=== PATIENT | female | born 1980 | race Caucasian/White ===

== ENCOUNTER 2020-11-03 23:30 | Emergency (ER) | payer OTHER ==
[~2020-11-03] VITALS: Ht 162.6 cm; Wt 90.7 kg
[2020-11-04] MEDS ORDERED: AUGMENTIN 875-1 EACH PO (01:11)
[2020-11-04 01:16] VITALS: BP 150/90
[2020-11-07] MEDS ORDERED: IMOVAX RABIE2.5 UNIT IM (08:55)
== END 2020-11-04 01:17 | disposition home or self-care (01) ==
LOC: M.ERS 23:30
DX: S51.852A Open bite of left forearm, initial encounter (principal); S61.250A Open bite of right index finger without damage to nail, initial encounter; Z90.711 Acquired absence of uterus with remaining cervical stump; W54.0XXA Bitten by dog, initial encounter; Y93.89 Activity, other specified; Y92.89 Other specified places as the place of occurrence of the external cause; Y99.8 Other external cause status

== ENCOUNTER 2020-11-13 14:31 | Emergency (ER) | payer OTHER ==
[~2020-11-13] VITALS: Ht 162.6 cm; Wt 90.7 kg
[~2020-11-13 14:31] MED LIST: AUGMENTIN 875-1 EACH PO; IMOVAX RABIE2.5 UNIT IM
[2020-11-13 15:12] LABS: URINE BILIRUBIN NEGATIVE (Negative); URINE BLOOD NEGATIVE (Negative); URINE CLARITY CLEAR; URINE COLOR YELLOW; URINE GLUCOSE-RANDOM NEGATIVE (Negative); URINE KETONES NEGATIVE (Negative); URINE LEUKOCYTES-REFLEX NEGATIVE (Negative); URINE NITRITE-REFLEX NEGATIVE (Negative); URINE PROTEIN NEGATIVE (Negative)
[2020-11-13 15:39] LABS: ABSOLUTE BASOPHILS 0.1 thou/uL (0.0-0.2); ABSOLUTE EOSINOPHILS 0.1 thou/uL (0.0-0.7); ABSOLUTE LYMPHOCYTES 1.2 thou/uL (0.8-5.3); ABSOLUTE MONOCYTES 0.4 thou/uL (0.0-1.2); ABSOLUTE NEUTROPHILS 4.3 thou/uL (1.6-8.1); BASOPHILS 1.1 %; EOSINOPHILS 1.6 %; HEMATOCRIT 45.2 % (37.0-47.0); LYMPHOCYTES 19.5 %; MCH 31.7 pg (26.0-34.0); MCHC 33.1 g/dL (28.0-37.0); MCV 95.6 fL (80.0-100.0); MONOCYTES 6.7 %; MPV 8.7 fl. (7.2-11.1); NUCLEATED RBCS 0 /100WBC; PLATELET COUNT* 280 thou/uL (150-400); POLYS 71.1 %; RBC 4.73 mil/uL (4.20-5.00); RDW-CV 13.6 % (10.5-14.5)
[2020-11-13 15:55] LABS: CALCIUM 8.9 mg/dL (8.5-10.1); CREATININE 0.7 mg/dL (0.6-1.3); POTASSIUM 4.1 mmol/L (3.5-5.1)
[2020-11-13 16:00] LABS: ALBUMIN 3.6 g/dL (3.4-5.0); TOTAL BILIRUBIN 0.5 mg/dL (<0.1-1.0); TOTAL PROTEIN 7.8 g/dL (6.4-8.2)
[2020-11-13] MEDS ORDERED: LISINOPRIL10 MG PO (17:22)
[2020-11-13 18:04] VITALS: BP 129/81
--- NOTE | 2020-11-14 10:14 | EKG ---
[place] [address] ELECTROCARDIOGRAM REPORT Name: ERNIE GUAJARDO Room: [facility]#: [id number] Admission: 11/13/20 Attend Phys: Discharge: 11/13/20 Date of : 80 Date of Service: 11/13/20 1459 Report #: [id number] THIS REPORT FOR: //name// [facility] ED Test Date: 2020-11-13 Test Time: 14:59:42 Pat Name: ERNIE GUAJARDO Department: Room: Gender: [employer]: ELE : 1980 Requested By: Melida Dudley Order Number: [id number] MD: Chele Rutledge Measurements Intervals Oil Trough Rate: 73 P: 36 WV: 154 QRS: 45 QRSD: 103 T: 29 QT: 391 QTc: 431 Interpretive Statements Sinus rhythm Baseline wander in lead(s) V3 No previous ECG available for comparison Electronically Signed On 11-14-2020 10:14:08 CDT by Chele Rutledge [email or web address] <ELECTRONICALLY SIGNED> By: Chele Rutledge MD, MERGED WITH [facility] 11/14/20 1014 1459 145 Chele Rutledge MD, FAC /EPI
== END 2020-11-13 18:04 | disposition home or self-care (01) ==
LOC: M.ERS 14:31
PROVIDERS: Physician Assistant
DX: I10 Essential (primary) hypertension (principal); G43.909 Migraine, unspecified, not intractable, without status migrainosus; E78.00 Pure hypercholesterolemia, unspecified; Z90.711 Acquired absence of uterus with remaining cervical stump; Z79.2 Long term (current) use of antibiotics; Z79.899 Other long term (current) drug therapy